=== PATIENT | female | born 1990 | race Caucasian/White ===

== ENCOUNTER 2017-09-08 09:01 | Inpatient (IN) | payer OTHER ==
[~2017-09-08] VITALS: Ht 157.5 cm; Wt 72.0 kg
[~2017-09-08 09:01] MED LIST: ALBU90OI INH; ALPR.5 PO; AMOX500 PO; AZIT250 PO; BUPR100 PO; Bactrim Ds Tab1 EACH PO; CITA20; CITA20 PO; CLIN150 PO; CLON.1 PO; CLON.2 PO; CLON1; CLON1 PO; CLON2 PO; CODACE30 PO; Citrate Of Mag300 ML PO; DICL75ER PO; DIPH50 PO; DOXY100 PO; FAMO40 PO; FLUO10 PO; FLUO20 PO; HYDACE10B PO; HYDACE5 PO; HYDHCL25 PO; IBUP600 PO; IBUP800 PO; LORA1 PO; LORA2; LOXA10 PO; LOXA5 PO; META800 PO; NAPR500 PO; ONDA4 PO; ONDA4ODT MM; OXYACE5T PO; PENVK500 PO; PHENA200 PO; PREN-16 PO; PROM25 PO; Prednisone20 MG PO; RXALBOI INH; RXOXYACE PO; RXTRAM50 PO; SULTRIDS PO; TRAM50 PO; TRAZ50; TRAZ50 PO; ZOLP5
[2017-09-08 10:37] LABS: Source, Urine Clean Catch
[2017-09-08 10:39] LABS: Bilirubin, Urine Neg (Neg); Blood, Urine Neg (Neg); Glucose Qualitative, Urine Neg (Neg); Ketones, Urine Neg (Neg); Leukocyte Esterase, Urine 1+ (Neg); Nitrite, Urine Pos (Neg); Protein, Urine Neg (Neg); Specific Gravity, Urine 1.015 (1.003-1.022); Urobilinogen, Urine NORM (Normal)
[2017-09-08 10:39] LABS: BASOPHILS ABSOLUTE AUTO 0.05 K/mm3 (0.00-0.23); BASOPHILS PERCENT AUTO 0 % (0-2); EOSINOPHILS PERCENT AUTO 0 % (0-6); Hematocrit 35.3 % (33.0-51.0); Hemoglobin 11.8 g/dL (11.5-16.0); IMMATURE GRAN ABSOLUTE AUTO 0.18 K/mm3 (0.00-0.10); IMMATURE GRAN PERCENT AUTO 1 % (0-1); LYMPHOCYTES ABSOLUTE AUTO 0.93 K/mm3 (0.84-5.20); LYMPHOCYTES PERCENT AUTO 4 % (21-46); MONOCYTES ABSOLUTE AUTO 2.89 K/mm3 (0.16-1.47); MONOCYTES PERCENT AUTO 11 % (4-13); Mean Corpuscular HGB 29.5 pg (26.0-34.0); Mean Corpuscular HGB Conc 33.4 g/dL (31.5-36.5); Mean Corpuscular Volume 88 fL (80-100); Mean Platelet Volume 9.6 fL (9.1-12.4); NEUTROPHILS ABSOLUTE AUTO 21.23 K/mm3 (1.96-9.15); NEUTROPHILS PERCENT AUTO 84 % (41-73); Platelet Count 261 K/mm3 (150-400); RDW Coefficient Variation 13.2 % (11.7-14.2); RDW Standard Deviation 42.7 fL (35.1-46.3); White Blood Cell Count 25.28 K/mm3 (4.00-11.30)
[2017-09-08 11:01] LABS: Appearance, Urine Clear (Clear); Color, Urine Yellow (P-Yellow)
[2017-09-08 11:02] LABS: Bacteria Many /hpf; Red Blood Cells, Urine Not Seen /hpf (0-2); Squamous Epithelial Cells Few /hpf (Few)
[2017-09-08 11:03] LABS: Alanine Aminotransfer (ALT/SGP 141 U/L (12-78); Albumin, Blood 3.1 g/dL (3.4-5.0); Albumin/Globulin Ratio 0.7 (0.8-1.8); Alk Phos 81 U/L (50-136); Anion Gap 9 mmol/L (6-16); Aspartate Aminotrans (AST/SGOT 116 U/L (12-37); Bilirubin, Total 0.6 mg/dL (0.1-1.0); Blood Urea Nitrogen 12 mg/dL (8-24); Bun/Creatinine Ratio 20.2 (12.0-20.0); CO2, Blood 24 mmol/L (21-32); Calcium, Blood 8.6 mg/dL (8.5-10.1); Chloride, Blood 99 mmol/L (98-108); Globulin, Blood 4.7 g/dL (2.2-4.0); Glomerular Filtration Rate >60 (60-); Glucose, Blood 97 mg/dL (70-99); Potassium, Blood 4.3 mmol/L (3.5-5.5); Sodium, Blood 132 mmol/L (136-145); Total Protein, Blood 7.8 g/dL (6.4-8.2)
[2017-09-08] MEDS ORDERED: SUBOXONE 8 MG-1 EACH SL (15:08)
[2017-09-09 05:07] LABS: BASOPHILS ABSOLUTE AUTO 0.05 K/mm3 (0.00-0.23); BASOPHILS PERCENT AUTO 0 % (0-2); EOSINOPHILS PERCENT AUTO 1 % (0-6); Hematocrit 30.1 % (33.0-51.0); Hemoglobin 9.7 g/dL (11.5-16.0); IMMATURE GRAN ABSOLUTE AUTO 0.13 K/mm3 (0.00-0.10); IMMATURE GRAN PERCENT AUTO 1 % (0-1); LYMPHOCYTES ABSOLUTE AUTO 2.05 K/mm3 (0.84-5.20); LYMPHOCYTES PERCENT AUTO 10 % (21-46); MONOCYTES ABSOLUTE AUTO 2.86 K/mm3 (0.16-1.47); MONOCYTES PERCENT AUTO 14 % (4-13); Mean Corpuscular HGB Conc 32.2 g/dL (31.5-36.5); Mean Corpuscular Volume 90 fL (80-100); Mean Platelet Volume 9.6 fL (9.1-12.4); NEUTROPHILS ABSOLUTE AUTO 15.11 K/mm3 (1.96-9.15); NEUTROPHILS PERCENT AUTO 75 % (41-73); Platelet Count 226 K/mm3 (150-400); RDW Coefficient Variation 13.3 % (11.7-14.2); RDW Standard Deviation 43.8 fL (35.1-46.3); Red Blood Cell Count 3.35 M/mm3 (3.80-5.20)
[2017-09-09 05:38] LABS: Alanine Aminotransfer (ALT/SGP 102 U/L (12-78); Albumin, Blood 2.8 g/dL (3.4-5.0); Albumin/Globulin Ratio 0.7 (0.8-1.8); Alk Phos 69 U/L (50-136); Anion Gap 7 mmol/L (6-16); Aspartate Aminotrans (AST/SGOT 48 U/L (12-37); Bilirubin, Total 0.3 mg/dL (0.1-1.0); Blood Urea Nitrogen 18 mg/dL (8-24); Bun/Creatinine Ratio 24.7 (12.0-20.0); CO2, Blood 26 mmol/L (21-32); Calcium, Blood 8.4 mg/dL (8.5-10.1); Chloride, Blood 102 mmol/L (98-108); Creatinine, Blood 0.73 mg/dL (0.40-1.00); Globulin, Blood 4.1 g/dL (2.2-4.0); Glomerular Filtration Rate >60 (60-); Glucose, Blood 119 mg/dL (70-99); Sodium, Blood 135 mmol/L (136-145); Total Protein, Blood 6.9 g/dL (6.4-8.2)
[2017-09-10 06:19] LABS: BASOPHILS ABSOLUTE AUTO 0.05 K/mm3 (0.00-0.23); BASOPHILS PERCENT AUTO 1 % (0-2); EOSINOPHILS ABSOLUTE AUTO 0.19 K/mm3 (0.00-0.68); EOSINOPHILS PERCENT AUTO 2 % (0-6); Hematocrit 34.9 % (33.0-51.0); IMMATURE GRAN ABSOLUTE AUTO 0.05 K/mm3 (0.00-0.10); IMMATURE GRAN PERCENT AUTO 1 % (0-1); LYMPHOCYTES ABSOLUTE AUTO 2.22 K/mm3 (0.84-5.20); LYMPHOCYTES PERCENT AUTO 22 % (21-46); MONOCYTES ABSOLUTE AUTO 1.43 K/mm3 (0.16-1.47); MONOCYTES PERCENT AUTO 14 % (4-13); Mean Corpuscular HGB 29.3 pg (26.0-34.0); Mean Corpuscular HGB Conc 31.5 g/dL (31.5-36.5); Mean Platelet Volume 9.6 fL (9.1-12.4); NEUTROPHILS ABSOLUTE AUTO 6.21 K/mm3 (1.96-9.15); NEUTROPHILS PERCENT AUTO 61 % (41-73); Platelet Count 236 K/mm3 (150-400); RDW Coefficient Variation 13.5 % (11.7-14.2); RDW Standard Deviation 46.1 fL (35.1-46.3); Red Blood Cell Count 3.76 M/mm3 (3.80-5.20); White Blood Cell Count 10.15 K/mm3 (4.00-11.30)
[2017-09-10 06:20] LABS: Mean Corpuscular Volume 93 fL (80-100)
[2017-09-10 06:44] LABS: Percent Saturation 7.1 % (15.0-50.0)
[2017-09-10 09:01] LABS: HCV Reactive (NR)
[2017-09-10] MEDS ORDERED: DOCU100 PO (09:03)
[2017-09-10] MEDS ORDERED: VENL37.5ER PO (09:04)
[2017-09-10] MEDS ORDERED: SACC250C PO (09:05)
[2017-09-10] MEDS ORDERED: TRAZ100 PO (09:05)
[2017-09-10] MEDS ORDERED: Ferrous Sulfat325 M2 PO (09:06)
[2017-09-10] MEDS ORDERED: CIPR500 PO (09:06)
[2017-09-10] MEDS ORDERED: SUBOXONE 8 MG-1 EACH SL (09:11)
== END 2017-09-10 10:28 | disposition home or self-care (01) | DRG 872 ==
LOC: ER 09:01 → MEDS 09:02 → ENPENDDIS 09-10 09:00 → MEDS 09-10 10:28
PROVIDERS: Emergency Medicine; Internal Medicine; Physician Assistant
DX: A41.51 Sepsis due to Escherichia coli [E. coli] (principal); N10 Acute pyelonephritis; F15.10 Other stimulant abuse, uncomplicated; F11.10 Opioid abuse, uncomplicated; I10 Essential (primary) hypertension; F20.9 Schizophrenia, unspecified; F17.210 Nicotine dependence, cigarettes, uncomplicated; D50.9 Iron deficiency anemia, unspecified; F32.9 Major depressive disorder, single episode, unspecified
CPT/HCPCS: 36415; 71046; 80053; 80074; 81001; 82728; 83540; 83550; 83690; 85025; 86701; 86702; 87077; 87086; 87186; 96361; 96365; 96375; 99285; J0696; J1200; J1650; J1885; J2405; J2765; J7030

== ENCOUNTER 2017-10-29 19:16 | Emergency (ER) | payer OTHER ==
[~2017-10-29] VITALS: Ht 157.5 cm; Wt 150.0 kg
[~2017-10-29 19:16] MED LIST changes: +CIPR500 PO; +DOCU100 PO; +Ferrous Sulfat325 M2 PO; +SACC250C PO; +SUBOXONE 8 MG-1 EACH SL; +TRAZ100 PO; +VENL37.5ER PO
[2017-10-29] MEDS ORDERED: Vibramycin100 MG PO (20:20)
[2017-10-29] MEDS ORDERED: IBUP400 PO (20:20)
[2017-10-29 21:48] LABS: Candida species (DNA Probe) Negative (NEGATIVE); G. vaginalis (DNA Probe) Positive (NEGATIVE); T. vaginalis (DNA Probe) Negative (NEGATIVE)
== END 2017-10-29 20:46 | disposition home or self-care (01) ==
LOC: ER 19:16
PROVIDERS: Emergency Medicine
DX: N76.0 Acute vaginitis (principal); Z88.8 Allergy status to other drugs, medicaments and biological substances; Z79.899 Other long term (current) drug therapy; Z79.2 Long term (current) use of antibiotics; I10 Essential (primary) hypertension; F20.9 Schizophrenia, unspecified; F41.9 Anxiety disorder, unspecified; F31.9 Bipolar disorder, unspecified; F43.10 Post-traumatic stress disorder, unspecified; F32.9 Major depressive disorder, single episode, unspecified; Z87.891 Personal history of nicotine dependence
CPT/HCPCS: 81025; 87480; 87510; 87660; 96372; 99284; J0696

== ENCOUNTER → 2018-02-18 | Outpatient (CLI) | payer OTHER ==
[~2018-02-18] MED LIST changes: +IBUP400 PO; +Vibramycin100 MG PO
[2018-02-18 14:44] LABS: Candida species (DNA Probe) Negative (NEGATIVE); G. vaginalis (DNA Probe) Positive (NEGATIVE); T. vaginalis (DNA Probe) Negative (NEGATIVE)
[2018-02-20 05:51] LABS: CHLAMYDIA TRACHOMATIS, NAA Negative (Negative); NEISSERIA GONORRHOEAE, NAA Negative (Negative)
[2018-02-20 11:07] LABS: HPV 16 Negative (Negative); HPV 18 Negative (Negative); HPV OTHER HR TYPES Positive (Negative)
== END ==
LOC: LAB SHORT 09:18 → LAB SRC 09:18 → EDSTATUS 10:21
PROVIDERS: Nurse Practitioner Family
DX: Z01.419 Encounter for gynecological examination (general) (routine) without abnormal findings (principal); N89.8 Other specified noninflammatory disorders of vagina
CPT/HCPCS: 87480; 87491; 87510; 87591; 87624; 87625; 87660; G0123

== ENCOUNTER 2018-05-14 20:13 | Emergency (ER) | payer OTHER ==
[~2018-05-14] VITALS: Ht 157.5 cm; Wt 68.0 kg
[~2018-05-14 20:13] MED LIST changes: +LATUDA20 MG PO; +LORA.5 PO
[2018-05-14 20:57] LABS: Appearance, Urine Clear (Clear); Bilirubin, Urine Neg (Neg); Blood, Urine Neg (Neg); Color, Urine Yellow (P-Yellow); Glucose Qualitative, Urine Neg (Neg); Ketones, Urine Neg (Neg); Leukocyte Esterase, Urine Neg (Neg); Nitrite, Urine Neg (Neg); Protein, Urine Neg (Neg); Specific Gravity, Urine 1.015 (1.003-1.022); Urobilinogen, Urine 1+ (Normal)
[2018-05-14] MEDS ORDERED: Inderal 20 mg T20 MG PO (21:38)
[2018-05-14] MEDS ORDERED: IBUP600 PO (22:25)
== END 2018-05-14 22:36 | disposition home or self-care (01) ==
LOC: ER 20:13
PROVIDERS: Emergency Medicine
DX: R10.9 Unspecified abdominal pain (principal); Z88.8 Allergy status to other drugs, medicaments and biological substances; Z79.899 Other long term (current) drug therapy; I10 Essential (primary) hypertension; F20.9 Schizophrenia, unspecified; F31.9 Bipolar disorder, unspecified; F43.10 Post-traumatic stress disorder, unspecified; F32.9 Major depressive disorder, single episode, unspecified; Z87.891 Personal history of nicotine dependence
CPT/HCPCS: 81003; 81025; 99284

== ENCOUNTER → 2019-05-05 | Outpatient (CLI) | payer OTHER ==
[~2019-05-05] MED LIST changes: +CLOBET30L TOP; +Cipro500 MG PO; +Inderal 20 mg T20 MG PO
[2019-05-05 19:08] LABS: U Amphetamine Screen Not Detected; U Barbituate Screen Not Detected; U Benzodiazapine Screen DETECTED; U Buprenorphine Screen Not Detected; U Cannabinoids Screen Not Detected; U Cocaine Screen Not Detected; U Methadone Screen DETECTED; U Methamphetamine Screen Not Detected; U Opiates Screen Not Detected; U Oxycodone Screen Not Detected; U Phencyclidine Screen Not Detected; U Propoxyphene Screen Not Detected
== END | disposition home or self-care (01) ==
LOC: LAB 16:59 → LAB SHORT 16:59
PROVIDERS: Registered Nurse Psychiatric/Mental Health
DX: Z51.81 Encounter for therapeutic drug level monitoring (principal); Z79.899 Other long term (current) drug therapy

== ENCOUNTER 2019-08-04 15:04 | Emergency (ER) | payer OTHER ==
[~2019-08-04] VITALS: Ht 157.5 cm; Wt 81.7 kg
[2019-08-04] MEDS ORDERED: BUPR150ER PO (15:36)
[2019-08-04] MEDS ORDERED: CLON.1 PO (15:36)
[2019-08-04] MEDS ORDERED: LORA.5 PO (15:36)
[2019-08-04] MEDS ORDERED: METH5 PO (15:37)
[2019-08-04] MEDS ORDERED: VENL25 PO (15:37)
[2019-08-04] MEDS ORDERED: Cyclobenzaprine5 MG PO (15:55)
[2019-08-04] MEDS ORDERED: IBU600 M1 PO (16:33)
== END 2019-08-04 16:40 | disposition home or self-care (01) ==
LOC: ER 15:04
DX: S42.001A Fracture of unspecified part of right clavicle, initial encounter for closed fracture (principal); S16.1XXA Strain of muscle, fascia and tendon at neck level, initial encounter; F41.9 Anxiety disorder, unspecified; F31.9 Bipolar disorder, unspecified; I10 Essential (primary) hypertension; F20.9 Schizophrenia, unspecified; Z88.8 Allergy status to other drugs, medicaments and biological substances; Z79.899 Other long term (current) drug therapy; F43.10 Post-traumatic stress disorder, unspecified; F17.210 Nicotine dependence, cigarettes, uncomplicated; V49.9XXA Car occupant (driver) (passenger) injured in unspecified traffic accident, initial encounter
CPT/HCPCS: 72040; 73000; 99284-25; A9270-GY

== ENCOUNTER 2019-08-26 22:01 | Emergency (ER) | payer OTHER ==
[~2019-08-26] VITALS: Ht 157.5 cm; Wt 81.7 kg
[~2019-08-26 22:01] MED LIST changes: +BUPR150ER PO; +Cyclobenzaprine5 MG PO; +IBU600 M1 PO; +METH5 PO; +VENL25 PO
[2019-08-26] MEDS ORDERED: LATUDA20 MG (23:03)
[2019-08-26] MEDS ORDERED: ABAT250V (23:03)
[2019-08-27] MEDS ORDERED: CYCL10 PO (00:14)
== END 2019-08-27 00:31 | disposition home or self-care (01) ==
LOC: ER 22:01
DX: M54.5 Low back pain (principal); I10 Essential (primary) hypertension; F20.9 Schizophrenia, unspecified; F31.9 Bipolar disorder, unspecified; F41.9 Anxiety disorder, unspecified; Z87.891 Personal history of nicotine dependence; Z79.899 Other long term (current) drug therapy
CPT/HCPCS: 72100; 99283-25

== ENCOUNTER → 2021-06-19 | Outpatient (CLI) | payer OTHER ==
[~2021-06-19] MED LIST changes: +ABAT250V; +CYCL10 PO; +LATUDA20 MG
[2021-06-22 00:07] LABS: CHLAMYDIA TRACHOMATIS, NAA Negative (Negative)
== END | disposition home or self-care (01) ==
LOC: LAB SHORT 19:27
PROVIDERS: Family Medicine
DX: N76.0 Acute vaginitis (principal)
CPT/HCPCS: 87070; 87147; 87205; 87491; 87591

== ENCOUNTER 2021-07-20 22:48 | Emergency (ER) | payer OTHER ==
[~2021-07-20] VITALS: Ht 157.5 cm; Wt 63.5 kg
== END 2021-07-20 23:30 | disposition home or self-care (01) ==
LOC: ER 22:48
DX: G56.03 Carpal tunnel syndrome, bilateral upper limbs (principal); I10 Essential (primary) hypertension; F17.210 Nicotine dependence, cigarettes, uncomplicated
CPT/HCPCS: 29125; 99282-25

== ENCOUNTER 2024-01-06 04:55 | Emergency (ER) | payer OTHER ==
[~2024-01-06] VITALS: Ht 157.5 cm; Wt 72.6 kg
[2024-01-06 04:55] VITALS: BP 136/99
[~2024-01-06 04:55] MED LIST changes: +CEFD300 PO; +CEFP200 PO
[2024-01-06] MEDS ORDERED: ACETAMINOPHEN500 MG PO (21:54)
== END 2024-01-06 07:35 | disposition left against medical advice (07) ==
LOC: ER 04:55
DX: S22.22XA Fracture of body of sternum, initial encounter for closed fracture (principal); V89.2XXA Person injured in unspecified motor-vehicle accident, traffic, initial encounter; I10 Essential (primary) hypertension; F31.9 Bipolar disorder, unspecified; Z87.891 Personal history of nicotine dependence; Z88.8 Allergy status to other drugs, medicaments and biological substances; Z79.899 Other long term (current) drug therapy
CPT/HCPCS: 70450; 71045; 71250; 72125; 74176; 93005; 93010; 99285-25

== ENCOUNTER 2024-01-06 18:19 | Emergency (ER) | payer OTHER ==
[~2024-01-06] VITALS: Ht 157.5 cm; Wt 72.6 kg
[2024-01-06] MEDS ORDERED: Lactated Ringer's 1,000 ML IV ONE (20:10)
[2024-01-06 20:50] LABS: BASOPHILS ABSOLUTE AUTO 0.03 K/mm3 (0.00-0.23); BASOPHILS PERCENT AUTO 0 % (0-2); EOSINOPHILS PERCENT AUTO 3 % (0-6); Hematocrit 39.1 % (33.0-51.0); IMMATURE GRAN ABSOLUTE AUTO 0.03 K/mm3 (0.00-0.10); IMMATURE GRAN PERCENT AUTO 0 % (0-1); LYMPHOCYTES ABSOLUTE AUTO 1.88 K/mm3 (0.84-5.20); LYMPHOCYTES PERCENT AUTO 25 % (21-46); MONOCYTES ABSOLUTE AUTO 0.68 K/mm3 (0.16-1.47); MONOCYTES PERCENT AUTO 9 % (4-13); Mean Corpuscular HGB 29.1 pg (26.0-34.0); Mean Corpuscular HGB Conc 33.2 g/dL (31.5-36.5); Mean Corpuscular Volume 88 fL (80-100); Mean Platelet Volume 9.4 fL (9.1-12.4); NEUTROPHILS ABSOLUTE AUTO 4.76 K/mm3 (1.96-9.15); NEUTROPHILS PERCENT AUTO 63 % (41-73); Platelet Count 219 K/mm3 (150-400); RDW Coefficient Variation 12.5 % (11.7-14.2); RDW Standard Deviation 40.3 fL (35.1-46.3); Red Blood Cell Count 4.46 M/mm3 (3.80-5.20); White Blood Cell Count 7.58 K/mm3 (4.00-11.30)
[2024-01-06 21:11] LABS: Anion Gap 10 mmol/L (3-11); Beta HCG, Quantitative, Serum <1 mIU/mL (0-3); Blood Urea Nitrogen 11 mg/dL (8-24); Bun/Creatinine Ratio 12.9 (12.0-20.0); CO2, Blood 26 mmol/L (21-32); Calcium, Blood 8.6 mg/dL (8.5-10.1); Chloride, Blood 104 mmol/L (98-108); Creatinine, Blood 0.86 mg/dL (0.40-1.00); Glomerular Filtration Rate 90 (60-); Glucose, Blood 106 mg/dL (70-99); Potassium, Blood 3.4 mmol/L (3.5-5.5); Sodium, Blood 137 mmol/L (136-145)
[2024-01-06] MEDS ORDERED: ACETAMINOPHEN500 MG PO (21:54)
[2024-01-06] MEDS ORDERED: RX Prepack 6 Tabs Oxycodone 5mg UD ONE (21:55)
[2024-01-06 23:10] VITALS: BP 119/81
== END 2024-01-06 23:19 | disposition home or self-care (01) ==
LOC: ER 18:19
PROVIDERS: Emergency Medicine
DX: S22.20XA Unspecified fracture of sternum, initial encounter for closed fracture (principal); S10.81XA Abrasion of other specified part of neck, initial encounter; V89.2XXA Person injured in unspecified motor-vehicle accident, traffic, initial encounter; I10 Essential (primary) hypertension; F31.9 Bipolar disorder, unspecified; F17.200 Nicotine dependence, unspecified, uncomplicated; Z88.8 Allergy status to other drugs, medicaments and biological substances
CPT/HCPCS: 70498; 80048; 84702; 85025; 96360; 99285-25; J7120; Q9967